=== PATIENT | female | born 1970 | race American Indian/Alaskan Native ===

== ENCOUNTER 2020-07-29 03:02 | Observation (INO) | payer OTHER ==
[2020-07-29 03:49] LABS: Bacteria,Urine 1+ /HPF (Negative); Bilirubin,Urine NEG (Negative); Blood,Urine NEG (Negative); Color,Urine Colorless (Yellow); Protein,Urine <15 mg/dL mg/dL (Negative); Urobilinogen,Urine < 2.0 mg/dL (<2.0)
[2020-07-29 03:55] LABS: Basophils % (Auto) 0.6 % (0.0-1.8); Eosinophils # (Auto) 0.6 K/mm3 (0.0-0.4); Eosinophils % (Auto) 8.6 % (0.0-4.3); Lymphocytes # (Auto) 1.6 K/mm3 (1.2-5.4); Lymphocytes % (Auto) 23.4 % (13.4-35.0); Mean Corpuscular HGB Conc 29 % (30-34); Mean Corpuscular Volume 75 fl (79-97); Monocytes # (Auto) 0.5 K/mm3 (0.0-0.8); Monocytes % (Auto) 7.8 % (0.0-7.3); Platelet Count 186 K/mm3 (140-440); Red Blood Count 1.97 M/mm3 (3.65-5.03)
[2020-07-29 04:01] LABS: Red Cell Distribution Width 22.9 % (13.2-15.2)
[2020-07-29 04:03] LABS: Hematocrit 14.8 % (30.3-42.9); Hemoglobin 4.3 gm/dl (10.1-14.3)
[2020-07-29 04:15] LABS: Alanine Aminotransferase 11 units/L (7-56); Albumin 4.2 g/dL (3.9-5); BUN/Creatinine Ratio 10; Blood Urea Nitrogen 10 mg/dL (7-17); Calcium 9.2 mg/dL (8.4-10.2); Hemolysis Index 0
[2020-07-29] MEDS ORDERED: SODIUM CHLORIDE 0.9% 500 ML 500 ML IV ONE (04:15)
--- NOTE | 2020-07-29 04:20 | Emergency Department Report ---
HPI - General Chief Complaint: Arrhythmia/Palpitations Time Seen by Provider: 07/29/20 03:48 - HPI HPI: Room 44 The patient is a 50-year-old female present with a chief complaint of uterine fibroid pain. The patient states she has a long history of uterine fibroids being followed by her spindle repairer. The patient states for several years she has had gradually increasing pelvic pain due to fibroids. The patient states she came to the emergency department today because of this pain. The patient states she had Ultram in the past but she currently does not have any pain medication. Patient does admit to feelings of fatigue dyspnea on exertion for several months. Patient denies melena or bright red blood per rectum. Patient denies fever or dysuria. ED Past Medical Hx - Past Medical History Previous Medical History?: No Additional medical history: fibriods, peptic ulcer disease - Surgical History Past Surgical History?: Yes Hx Cholecystectomy: Yes - Family History Family history: no significant - Social History Smoking Status: Never Smoker Substance Use Type: None (Denies illicit drug use), Alcohol (Occasional) ED Review of Systems ROS: Stated complaint: NAUSEA/ABD PAIN Other details as noted in HPI Constitutional: malaise Eyes: denies: eye pain ENT: denies: throat pain Respiratory: SOB with exertion Cardiovascular: denies: chest pain Endocrine: no symptoms reported Gastrointestinal: denies: hematemesis, melena Genitourinary: denies: dysuria Musculoskeletal: denies: back pain Neurological: denies: headache Physical Exam - Physical Exam Vital Signs: Vital Signs 07/29/20 03:04 Temperature 98.3 F Pulse Rate 114 H Respiratory 20 Rate Blood Pressure 142/77 Physical Exam: GENERAL: The patient is well-developed well-nourished female lying on stretcher not appearing to be in acute distress. [] HEENT: Normocephalic. Atraumatic. Extraocular motions are intact. Patient has moist mucous membranes. NECK: Supple. Trachea midline CHEST/LUNGS: Clear to auscultation. There is no respiratory distress noted. HEART/CARDIOVASCULAR: Regular. There is no tachycardia. There is no gallop rub or murmur. ABDOMEN: Abdomen is soft, nontender. Patient has normal bowel sounds. There is no abdominal distention. SKIN: There is no rash. There is no edema. There is no diaphoresis. NEURO: The patient is awake, alert, and oriented. The patient is cooperative. The patient has normal speech MUSCULOSKELETAL: There is no evidence of acute injury. ED Course Vital Signs 07/29/20 03:04 Temperature 98.3 F Pulse Rate 114 H Respiratory 20 Rate Blood Pressure 142/77 - Consultations Consultation #1: 07/29/20 04:32 [facility] called 07/29/20 05:30 Case discussed with [facility] physician Dr. Johnson- on full saturation may admit patient at [facility] ED Medical Decision Making - Lab Data Result diagrams: 07/29/20 03:32 07/29/20 03:32 Laboratory Tests 07/29/20 07/29/20 07/29/20 03:32 03:32 04:55 WBC 6.7 RBC 1.97 L Hgb 4.3 L* Hct 14.8 L* MCV 75 L MCH 22 L MCHC 29 L RDW 22.9 H Plt Count 186 Lymph % (Auto) 23.4 [place] % (Auto) 7.8 H Eos % (Auto) 8.6 H Baso % (Auto) 0.6 Lymph # (Auto) 1.6 [place] # (Auto) 0.5 Eos # (Auto) 0.6 H Baso # (Auto) 0.0 Seg Neutrophils % 59.6 Seg Neutrophils # 4.0 Sodium 134 L Potassium 4.4 Chloride 102.8 Carbon Dioxide 22 Anion Gap 14 BUN 10 Creatinine 1.0 Estimated GFR > 60 BUN/Creatinine Ratio 10 Glucose 88 Calcium 9.2 Total Bilirubin 0.20 AST 19 ALT 11 Alkaline Phosphatase 60 Total Protein 7.1 Albumin 4.2 Albumin/Globulin Ratio 1.4 Lipase 28 Urine Color Urine Turbidity Urine pH Ur Specific [place] Urine Protein Urine Glucose (UA) Urine Ketones Urine Blood Urine Nitrite Urine Bilirubin Urine Urobilinogen Ur Leukocyte Esterase Urine WBC (Auto) Urine RBC (Auto) U Epithel Cells (Auto) Urine Bacteria (Auto) Blood Type O POSITIVE Crossmatch See Detail 07/29/20 Unknown WBC RBC Hgb Hct MCV MCH MCHC RDW Plt Count Lymph % (Auto) [place] % (Auto) Eos % (Auto) Baso % (Auto) Lymph # (Auto) [place] # (Auto) Eos # (Auto) Baso # (Auto) Seg Neutrophils % Seg Neutrophils # Sodium Potassium Chloride Carbon Dioxide Anion Gap BUN Creatinine Estimated GFR BUN/Creatinine Ratio Glucose Calcium Total Bilirubin AST ALT Alkaline Phosphatase Total Protein Albumin Albumin/Globulin Ratio Lipase Urine Color Colorless Urine Turbidity Clear Urine pH 6.0 Ur Specific [place] 1.006 Urine Protein <15 mg/dl Urine Glucose (UA) Neg Urine Ketones Neg Urine Blood Neg Urine Nitrite Neg Urine Bilirubin Neg Urine Urobilinogen < 2.0 Ur Leukocyte Esterase Neg Urine WBC (Auto) 1.0 Urine RBC (Auto) 1.0 U Epithel Cells (Auto) 1.0 Urine Bacteria (Auto) 1+ Blood Type Crossmatch - Differential Diagnosis Uterine fibroids, symptomatic anemia Critical care attestation.: If time is entered above; I have spent that time in minutes in the direct care of this critically ill patient, excluding procedure time. ED Disposition Clinical Impression: Symptomatic anemia, Uterine fibroid, Pelvic pain Disposition: 09 OP ADMIT IP TO THIS HOSP Is pt being admited?: Yes Does the pt Need Aspirin: No Condition: Stable Referrals: ALMA NEIL MD [Primary Care Provider] - 3-5 Days Time of Disposition: 05:30 (Hospitalist paged (Dfyobany Aguirre))
--- NOTE | 2020-07-29 06:59 | Ultrasound Report ---
US pelvic complete INDICATION / CLINICAL INFORMATION: Pelvic pain, history of uterine fibroid. TECHNIQUE: Transabdominal. Duplex Color Doppler used: Yes. COMPARISON: None available FINDINGS: UTERUS: Measures 17.9 x 9.2 x 10.6 cm. Cervical calcification is seen. -Endometrial stripe measures 0.7 cm. - Mass lesions: There are 2 large anterior and posterior uterine lesions measuring 5.5 cm anteriorly 9.4 cm posteriorly. Cervix: There is a 1.5 cm echogenic lesion with shadowing seen within the cervical canal. The vascula rity is seen. RIGHT ADNEXA: No significant ovarian cyst or mass. Normal color Doppler blood flow. LEFT ADNEXA: Left ovary is not visualized. No mass or significant adnexal abnormality. URINARY BLADDER: No significant abnormality. FREE FLUID: None. ADDITIONAL FINDINGS: None. IMPRESSION: 1. Nonspecific 1.5 cm echogenic lesion is seen within the cervix which could represent a polyp. Corre late with physical examination. 2. 2 large uterine fibroids. Signer Name: Junior Puentes MD Signed: 07/29/2020 6:54 AM Workstation Name: [id number]
[2020-07-29] MEDS ORDERED: ALBUTEROL 2.5 MG/3 ML NEBU IH PRN (07:35)
[2020-07-29] MEDS ORDERED: ONDANSETRON 4 MG/2 ML INJ IV PRN (07:35)
[2020-07-29] MEDS ORDERED: ACETAMINOPHEN 325 MG TAB PO PRN (07:35)
--- NOTE | 2020-07-29 07:41 | History and Physical Report ---
History of Present Illness Date of examination: 07/29/20 Date of admission: 07/29/20 06:08 Chief complaint: " My stomach hurts" History of present illness: This is a 50-year-old female with IBS with constipation, uterine fibroids, uterine cyst, anemia, sciatica and peptic ulcer disease who presents to the emergency department on 07/29 for worsening intermittent abdominal and pelvic pain rated at a 8-10/10 and described as a pressure associated with bloating, severe constipation, nausea, and dyspnea on exertion which has been ongoing for about 6 months. Patient states over the past 6 months she has experienced dyspnea on exertion, bilateral leg swelling disease right greater than left), neck pain and nausea. Patient denies any menorrhagia or dysmenorrhea. 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 Patient denies any fevers, chills or recent weight loss, dry cough, chest pain, loss of sense of taste or smell, night sweats, recent travel, recent sick contacts or known exposure to COVID-19. Work-up in the emergency department revealed severe symptomatic anemia with a H/H of 4.3/14.8, slight hyponatremia at 130, and a pelvic ultrasound revealed 2 large uterine fibroids and nonspecific 1.5 echogenic lesion. In the emergency department she was typed and crossed 2 units PRBC were ordered for transfusion and a stat Hemoccult was ordered. Patient will be admitted to the hospitalist service for symptomatic anemia. Advance care planning care planning conducted in the emergency department, past records reviewed and RN asked to update her medications to reconcile. Past History Past Medical History: other (Peptic ulcer disease, irritable bowel syndrome with constipation, uterine fibroids, uterine cyst, anemia) Past Surgical History: appendectomy, cholecystectomy, Social history: single, lives with family, full code. denies: smoking, alcohol abuse, prescription drug abuse, IV drug use Family history: no significant family history Medications and Allergies Allergies Allergy/AdvReac Type Severity Reaction Status Date / Time NSAIDS (Non-Steroidal Allergy Unknown Verified 07/29/20 03:18 Anti-Inflamma Penicillins Allergy Unknown Verified 07/29/20 03:18 Active Meds: Active Medications Acetaminophen (Acetaminophen 325 Mg Tab) 650 mg PO Q4H PRN PRN Reason: Pain MILD(1-3)/Fever >100.5/[place] Albuterol (Albuterol 2.5 Mg/3 Ml Nebu) 2.5 mg IH Q4HRT PRN PRN Reason: Shortness Of Breath Docusate Sodium (Docusate Sodium 100 Mg Cap) 100 mg PO BID YOLANDA Famotidine (Famotidine 20 Mg Tab) 20 mg PO BID YOLANDA Ondansetron HCl (Ondansetron 4 Mg/2 Ml Inj) 4 mg IV Q8H PRN PRN Reason: Nausea And Vomiting Oxycodone/Acetaminophen (Oxycodone /Acetaminophen 5-325mg Tab) 1 tab PO Q6H PRN PRN Reason: Pain, Moderate (4-6) Senna (Sennosides 8.6 Mg Tab) 8.6 mg PO Q12HR YOLANDA Sodium Chloride (Sodium Chloride 0.9% 10 Ml Flush Syringe) 10 ml IV BID YOLANDA Sodium Chloride (Sodium Chloride 0.9% 10 Ml Flush Syringe) 10 ml IV PRN PRN PRN Reason: LINE FLUSH Review of Systems Constitutional: no weight loss, no weight gain, no fever, no chills, no sweats, no night sweats, no anorexia, no fatigue, no weakness, no lethargy Ears, nose, mouth and throat: post-nasal drip (intermittently), no ear pain, no ear discharge, no tinnitis, no decreased hearing, no nose pain, no nasal congestion, no nasal discharge, no sinus pressure, no sinus pain, no epistaxis, no bleeding gums, no dental pain, no mouth pain, no dysphagia, no hoarseness, no sore throat, no voice changes Cardiovascular: palpitations, dyspnea on exertion, no chest pain, no orthopnea, no rapid/irregular heart beat, no edema, no syncope, no lightheadedness, no shortness of breath, no paroxysmal nocturnal dyspnea, no claudication, no high blood pressure, no leg edema Respiratory: dyspnea on exertion, no cough, no cough with sputum, no excessive sputum, no hemoptysis, no shortness of breath, no congestion, no wheezing, no pain Gastrointestinal: abdominal pain, nausea, constipation, change in bowel habits, dyspepsia/bloating, no vomiting, no diarrhea, no hematemesis, no coffee ground emesis, no BRBPR, no melena, no hematochezia, no loss of appetite Genitourinary Female: pelvic pain, nocturia, hot flashes, no dysmenorrhea, no flank pain, no menorrhagia, no dysuria, no urinary frequency, no urgency, no stress incontinence, no post void dribbling, no hematuria Menstruation: postmenopausal (per the pt) Rectal: hemorrhoids, no pain, no incontinence, no bleeding, no itching Musculoskeletal: shooting leg pain (occasional sciatia ), no neck stiffness, no neck pain, no shooting arm pain, no arm numbness/tingling, no low back pain, no leg numbness/tingling, no redness of joints, no limitation of motion, no frequent falls, no fractures, no loss of height Integumentary: no rash, no pruritis, no redness, no sores, no wounds, no jaundice, no blisters Neurological: no head injury, no transient paralysis, no paralysis, no weakness, no parathesias, no numbness, no tingling, no seizures, no syncope, no tremors, no lack of coordination, no headaches, no migraines, no change in speech, no change in mentation, no changes in smell/taste, no double vision, no paralysis Psychiatric: no anxiety, no memory loss, no change in sleep habits, no insomnia, no hypersomnia, no suicidal ideation, no disorientation, no paranoia, no depression, no hopelessness, no anxiety attacks Endocrine: nocturia (not unusual, pt drink "allot of water"), palpatations, no cold intolerance, no heat intolerance, no polyphagia, no excessive thirst, no polydipsia, no polyuria, no excessive sweating, no weight change, no increase in ring/shoe/hat size Hematologic/Lymphatic: easy bruising Allergic/Immunologic: allergic rhinitis, seasonal allergies, no urticaria, no persistent infections Exam - Constitutional Vitals: Temp Pulse Resp BP Pulse Ox 98.3 F 114 H 20 142/77 07/29/20 03:04 07/29/20 03:04 07/29/20 03:04 07/29/20 03:04 General appearance: Present: no acute distress - EENT Eyes: Present: PERRL, EOM intact ENT: hearing intact, clear oral mucosa, dentition normal - Neck Neck: Present: normal ROM - Respiratory Respiratory effort: normal Respiratory: bilateral: CTA - Cardiovascular Rhythm: regular Heart Sounds: Present: S1 & S2. Absent: systolic murmur, diastolic murmur - Extremities Extremities: no ischemia, pulses intact, pulses symmetrical, No edema, normal temperature, normal color, Full ROM Peripheral Pulses: within normal limits - Abdominal General gastrointestinal: Present: soft, tender, non-distended, normal bowel sounds Localized gastrointestinal: tender: suprapubic - Integumentary Integumentary: Present: warm, dry - Musculoskeletal Musculoskeletal: strength equal bilaterally - Psychiatric Psychiatric: appropriate mood/affect, cooperative - Neurologic Neurologic: CNII-XII intact, no focal deficits, moves all extremities - Allied Health Allied health notes reviewed: nursing Results - Labs CBC & Chem 7: 07/29/20 03:32 07/29/20 03:32 Labs: Laboratory Last Values WBC 6.7 K/mm3 (4.5-11.0) 07/29/20 03:32 RBC 1.97 M/mm3 (3.65-5.03) L 07/29/20 03:32 Hgb 4.3 gm/dl (10.1-14.3) L* 07/29/20 03:32 Hct 14.8 % (30.3-42.9) L* 07/29/20 03:32 MCV 75 fl (79-97) L 07/29/20 03:32 MCH 22 pg (28-32) L 07/29/20 03:32 MCHC 29 % (30-34) L 07/29/20 03:32 RDW 22.9 % (13.2-15.2) H 07/29/20 03:32 Plt Count 186 K/mm3 (140-440) 07/29/20 03:32 Lymph % (Auto) 23.4 % (13.4-35.0) 07/29/20 03:32 [place] % (Auto) 7.8 % (0.0-7.3) H 07/29/20 03:32 Eos % (Auto) 8.6 % (0.0-4.3) H 07/29/20 03:32 Baso % (Auto) 0.6 % (0.0-1.8) 07/29/20 03:32 Lymph # (Auto) 1.6 K/mm3 (1.2-5.4) 07/29/20 03:32 [place] # (Auto) 0.5 K/mm3 (0.0-0.8) 07/29/20 03:32 Eos # (Auto) 0.6 K/mm3 (0.0-0.4) H 07/29/20 03:32 Baso # (Auto) 0.0 K/mm3 (0.0-0.1) 07/29/20 03:32 Seg Neutrophils % 59.6 % (40.0-70.0) 07/29/20 03:32 Seg Neutrophils # 4.0 K/mm3 (1.8-7.7) 07/29/20 03:32 Sodium 134 mmol/L (137-145) L 07/29/20 03:32 Potassium 4.4 mmol/L (3.6-5.0) 07/29/20 03:32 Chloride 102.8 mmol/L (98-107) 07/29/20 03:32 Carbon Dioxide 22 mmol/L (22-30) 07/29/20 03:32 Anion Gap 14 mmol/L 07/29/20 03:32 BUN 10 mg/dL (7-17) 07/29/20 03:32 Creatinine 1.0 mg/dL (0.6-1.2) 07/29/20 03:32 Estimated GFR > 60 ml/min 07/29/20 03:32 BUN/Creatinine Ratio 10 % 07/29/20 03:32 Glucose 88 mg/dL (65-100) 07/29/20 03:32 Calcium 9.2 mg/dL (8.4-10.2) 07/29/20 03:32 Total Bilirubin 0.20 mg/dL (0.1-1.2) 07/29/20 03:32 AST 19 units/L (5-40) 07/29/20 03:32 ALT 11 units/L (7-56) 07/29/20 03:32 Alkaline Phosphatase 60 units/L (35-129) 07/29/20 03:32 Total Protein 7.1 g/dL (6.3-8.2) 07/29/20 03:32 Albumin 4.2 g/dL (3.9-5) 07/29/20 03:32 Albumin/Globulin Ratio 1.4 % 07/29/20 03:32 Lipase 28 units/L (13-60) 07/29/20 03:32 Urine Color Colorless (Yellow) 07/29/20 Unknown Urine Turbidity Clear (Clear) 07/29/20 Unknown Urine pH 6.0 (5.0-7.0) 07/29/20 Unknown Ur Specific [place] 1.006 (1.003-1.030) 07/29/20 Unknown Urine Protein <15 mg/dl mg/dL (Negative) 07/29/20 Unknown Urine Glucose (UA) Neg mg/dL (Negative) 07/29/20 Unknown Urine Ketones Neg mg/dL (Negative) 07/29/20 Unknown Urine Blood Neg (Negative) 07/29/20 Unknown Urine Nitrite Neg (Negative) 07/29/20 Unknown Urine Bilirubin Neg (Negative) 07/29/20 Unknown Urine Urobilinogen < 2.0 mg/dL (<2.0) 07/29/20 Unknown Ur Leukocyte Esterase Neg (Negative) 07/29/20 Unknown Urine WBC (Auto) 1.0 /HPF (0.0-6.0) 07/29/20 Unknown Urine RBC (Auto) 1.0 /HPF (0.0-6.0) 07/29/20 Unknown U Epithel Cells (Auto) 1.0 /HPF (0-13.0) 07/29/20 Unknown Urine Bacteria (Auto) 1+ /HPF (Negative) 07/29/20 Unknown Blood Type O POSITIVE 07/29/20 04:55 Antibody Screen Negative 07/29/20 04:55 Crossmatch See Detail 07/29/20 04:55 - Imaging and Cardiology US - abdomen: report reviewed - Diagnostic Impressions Diagnostic Impressions: 07/29/2020 US pelvic shows a nonspecific 1.5 cm echogenic lesion is seen within the cervix which could represent a polyp (correlate with physical examination.)and 2 large uterine fibroids. Carter/IV: IV Catheter Type [Left Peripheral IV Antecubital] Assessment and Plan VTE prophylaxis?: Mechanical Contraindication Mechanical VTE Prophylaxis: Contraindicated Reason for no VTE Prophylaxis: Bleeding Plan of care discussed with patient/family: Yes - Patient Problems (1) Symptomatic anemia Current Visit: Yes Status: Acute Plan to address problem: -Presented with palpations -1/5 H/H 4.3/14.8 -Type and cross -Transfuse ii units of PRBC -Post transfusion h/h -Monitor CBC -Transfuse for Hemoglobin <7 -Multivitamin and Iron supplementation (2) Pelvic pain Current Visit: Yes Status: Acute Plan to address problem: -Analgesics -Supportive care (3) Peptic ulcer disease Current Visit: Yes Status: Chronic Plan to address problem: -GI prophylaxis (4) Irritable bowel syndrome with constipation Current Visit: Yes Status: Chronic Plan to address problem: -Resume home medication when available -Supportive care (5) Uterine fibroid Current Visit: Yes Status: Chronic Plan to address problem: -07/29 Uterine US: Cervical calcification is seen. -Endometrial stripe measures 0.7 cm. - Mass lesions: There are 2 large anterior and posterior uterine lesions measuring 5.5 cm anteriorly 9.4 cm posteriorly. Cervix: There is a 1.5 cm echogenic lesion with shadowing seen within the cervical canal. The vascularity is seen. -F/U with BROOM MACHINE OPERATOR outpatient (6) DVT prophylaxis Current Visit: Yes Status: Acute Plan to address problem: -SCDS to BLE while in bed -No chemical prophylaxis in setting of symptomatic anemia (7) Full code status Current Visit: Yes Status: Acute
[2020-07-29] MEDS ORDERED: SODIUM CHLORIDE 0.9% 500 ML 500 ML ONE ×2 (08:21→13:48)
[2020-07-29] MEDS: oxyCODONE /ACETAMINOPHEN 5-325MG TAB PO PRN ×2 (09:00→16:07)
[2020-07-29] MEDS: FAMOTIDINE 20 MG TAB PO SCH ×2 (10:18→22:09)
[2020-07-29] MEDS: SENNOSIDES 8.6 MG TAB PO SCH ×2 (10:18→22:09)
[2020-07-29] MEDS: DOCUSATE SODIUM 100 MG CAP PO SCH ×2 (10:18→22:09)
[2020-07-29 17:05] LABS: Hematocrit 21.4 % (30.3-42.9); Hemoglobin 6.5 gm/dl (10.1-14.3)
[2020-07-29] MEDS: amLODIPine 5 MG TAB PO SCH (18:13)
[2020-07-29] MEDS ORDERED: SODIUM CHLORIDE 0.9% 500 ML 500 ML IV SCH (19:29)
[2020-07-29] MEDS ORDERED: FUROSEMIDE 20 MG/2 ML INJ IV SCH (19:31)
[2020-07-30] MEDS: oxyCODONE /ACETAMINOPHEN 5-325MG TAB PO PRN ×4 (02:16→15:40)
[2020-07-30] MEDS: amLODIPine 5 MG TAB PO SCH (09:32)
[2020-07-30] MEDS: SENNOSIDES 8.6 MG TAB PO SCH (09:32)
[2020-07-30] MEDS: FAMOTIDINE 20 MG TAB PO SCH (09:32)
[2020-07-30] MEDS: DOCUSATE SODIUM 100 MG CAP PO SCH (09:32)
[2020-07-30] MEDS ORDERED: POLYETHYLENE GLYCOL 3350 17 GM POWDER PO SCH (10:00)
--- NOTE | 2020-07-30 14:56 | Discharge Summary ---
Providers - Providers Date of Admission: 07/29/20 06:08 Attending physician: MICHAEL HACKETT [facility] Condition: Stable Hospital course: This is a 50-year-old female with IBS with constipation, uterine fibroids, uterine cyst, anemia, sciatica and peptic ulcer disease who presents to the emergency department on 07/29 for worsening intermittent abdominal and pelvic pain rated at a 8-10/10 and described as a pressure associated with bloating, severe constipation, nausea, and dyspnea on exertion which has been ongoing for about 6 months. Patient states over the past 6 months she has experienced dyspnea on exertion, bilateral leg swelling disease right greater than left), neck pain and nausea. Patient denies any menorrhagia or dysmenorrhea. 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 In the emergency department she was typed and crossed 2 units PRBC which were transfused. Repeat H&H was 6.5/21.4 and she was given additional 2 units of PRBC. She also received Lasix in between her 4 units of PRBC to prevent pulmonary edema. Repeat h/h ordered. Patient will be discharged if her hemoglobin is greater than 7. Patient will need to follow-up with her primary care physician and VOLLEYBALL PLAYER outpatient within 1 to 2 weeks of discharge. - Patient Problems (1) Symptomatic anemia Current Visit: Yes Status: Acute Plan to address problem: -Presented with palpations -07/29 H/H 4.3/14.8 -07/29 Repeat H/H 6.5/21.4 -s/p 20 mg of IV Lasix after each unit of transfusion to prevent pulmonary edema. -s/p 4 units PRBC while inpatient -Continue Multivitamin and Iron supplementation -Follow-up with PICK PACK WORKER outpatient (2) Pelvic pain Current Visit: Yes Status: Acute Plan to address problem: -Analgesics as needed -Supportive care -Follow-up with PICK PACK WORKER outpatient (3) Peptic ulcer disease Current Visit: Yes Status: Chronic Plan to address problem: -Continue PPI (4) Irritable bowel syndrome with constipation Current Visit: Yes Status: Chronic Plan to address problem: -Continue home medication -Follow-up with primary care physician within 1 to 2 weeks of discharge -Supportive care (5) Uterine fibroid Current Visit: Yes Status: Chronic Plan to address problem: -07/29 Uterine US: Cervical calcification is seen. -Endometrial stripe measures 0.7 cm. - Mass lesions: There are 2 large anterior and posterior uterine lesions measuring 5.5 cm anteriorly 9.4 cm posteriorly. Cervix: There is a 1.5 cm echogenic lesion with shadowing seen within the cervical canal. The vascularity is seen. -Follow-up with PICK PACK WORKER outpatient Disposition: DC-01 TO HOME OR SELFCARE Time spent for discharge: 35 Core Measure Documentation - Palliative Care Palliative Care/ Comfort Measures: Not Applicable - Core Measures Any of the following diagnoses?: none Exam - Constitutional Vitals: Temp Pulse Resp BP Pulse Ox 98.4 F 75 16 136/82 97 07/30/20 10:53 07/30/20 10:00 07/30/20 03:44 07/30/20 10:53 07/30/20 09:53 General appearance: Present: no acute distress - EENT Eyes: Present: PERRL, EOM intact ENT: hearing intact, clear oral mucosa, dentition normal - Neck Neck: Present: supple, normal ROM - Respiratory Respiratory effort: normal Respiratory: bilateral: CTA - Cardiovascular Rhythm: regular Heart Sounds: Present: S1 & S2. Absent: systolic murmur, diastolic murmur - Extremities Extremities: no ischemia, pulses intact, pulses symmetrical, No edema, normal temperature, normal color, Full ROM Peripheral Pulses: within normal limits - Abdominal General gastrointestinal: Present: soft, non-tender, non-distended, normal bowel sounds - Integumentary Integumentary: Present: clear, warm, dry - Musculoskeletal Musculoskeletal: strength equal bilaterally - Psychiatric Psychiatric: appropriate mood/affect, cooperative - Neurologic Neurologic: CNII-XII intact, no focal deficits, moves all extremities - Allied Health Allied health notes reviewed: nursing Plan Activity: advance as tolerated Diet: low fat, low salt Special Instructions: record daily BP diary Additional Instructions: Present to nearest emergency department or contact your primary care physician if you experience worsening symptoms. Follow-up with your primary care physician and PICK PACK WORKER within 1 to 2 weeks of discharge. You will be discharged to continue your iron and multivitamin. Follow up with: ALMA NEIL MD [Primary Care Provider] - 3-5 Days JOHN BILLY CNM [Staff Physician] - 7 Days SERA DANIELLE MD [Staff Physician] - 7 Days Prescriptions: amLODIPine 5 mg PO QDAY #30 tablet
[2020-07-30 15:47] LABS: Blood Urea Nitrogen 6 mg/dL (7-17); Calcium 9.7 mg/dL (8.4-10.2); Hemolysis Index 0
[2020-07-30 15:50] LABS: Hematocrit 28.6 % (30.3-42.9); Hemoglobin 9.1 gm/dl (10.1-14.3)
[2020-07-30 15:52] LABS: Hematocrit 28.9 % (30.3-42.9); Hemoglobin 9.1 gm/dl (10.1-14.3); Mean Corpuscular HGB Conc 31 % (30-34); Mean Corpuscular Volume 79 fl (79-97); Platelet Count 187 K/mm3 (140-440); Red Blood Count 3.67 M/mm3 (3.65-5.03)
[2020-07-30 15:56] LABS: BUN/Creatinine Ratio 9
[2020-07-30 15:57] LABS: Red Cell Distribution Width 20.6 % (13.2-15.2)
[2020-07-30 16:57] VITALS: BP 138/84
[2020-07-30 17:46] LABS: Anisocytosis 1+; Band Neutrophils # (Manual) 0.1 K/mm3; Hypochromasia 1+; Total Cells Counted 100
[2020-07-30 17:47] LABS: Ovalocytes Rare; Tear Drop Cells Rare
[2020-07-30 17:48] LABS: Platelet Estimate Consistent w Auto
== END 2020-07-30 18:14 | disposition home or self-care (01) ==
LOC: ED 03:02 → 4A 06:08
PROVIDERS: ADMIT Internal Medicine; ATTEND Internal Medicine
DX: D64.9 Anemia, unspecified (principal); D25.9 Leiomyoma of uterus, unspecified; R10.9 Unspecified abdominal pain; K27.9 Peptic ulcer, site unspecified, unspecified as acute or chronic, without hemorrhage or perforation; N85.8 Other specified noninflammatory disorders of uterus; K58.9 Irritable bowel syndrome, unspecified; Z90.49 Acquired absence of other specified parts of digestive tract; Z98.891 History of uterine scar from previous surgery
CPT/HCPCS: 36415; 36430; 76856; 80048; 80053; 81001; 83690; 85014; 85018; 85025; 86850; 86900; 86901; 86920; 96361; 96374; 99284; G0378; J2405; J7040; P9016; 85007